=== PATIENT | male | born 1975 | race Caucasian/White ===

== ENCOUNTER 2021-09-11 19:25 | Emergency (ER) | payer BC ==
--- NOTE | 2021-09-11 22:00 | CR ---
INDICATION: Left shoulder pain. COMPARISON: None. TECHNIQUE: Left shoulder 2 view. FINDINGS: No acute fracture. Alignment is within normal limits. Mild AC joint osteophyte formation. IMPRESSION: Mild AC joint degenerative arthrosis. Otherwise no acute osseous abnormality. Dictated by Efrain Winkler MD @ 09/11/2021 10:00:15 PM (Electronically Signed)
[2021-09-11] MEDS ORDERED: traMADol 50 MG Tab PO ONE (22:07)
--- NOTE | 2021-09-11 22:07 | EDM.PDOC ---
ED HPI GENERAL MEDICAL PROBLEM - General Chief Complaint: Upper Extremity Injury/Pain Stated Complaint: SHOULDER PAIN Time Seen by Provider: 09/11/21 21:58 Source of Information: Reports: Patient History Limitations: Reports: No Limitations - History of Present Illness INITIAL COMMENTS - FREE TEXT/NARRATIVE: Patient is a 46-year-old male in today for left shoulder pain. 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 Patient states that yesterday he was moving a couch when the shoulder twisted again causing more pain. He has been having pain in the shoulder rating down to his fingertips. He still sensation there. Denies any other injuries or falls. Denies any chest pain fever chills nausea vomiting. Left Shoulder Pain Score (Numeric/FACES): 8 - Related Data Allergies Allergy/AdvReac Type Severity Reaction Status Date / Time acetaminophen Allergy Other Verified 09/11/21 20:23 diphenhydramine Allergy Other Verified 09/11/21 20:23 Penicillins Allergy Hives Verified 09/11/21 20:23 Home Meds: Home Meds . [No Known Home Meds] 09/11/21 [History] Past Medical History Gastrointestinal History: Reports: Cirrhosis Other Musculoskeletal History: 2 surgeries on right shoulder. Social & Family History - Tobacco Use Tobacco Use Status *Q: Never Tobacco User - Recreational Drug Use Recreational Drug Use: No Review of Systems - Review of Systems Review Of Systems: See Below Constitutional: Reports: No Symptoms Eyes: Reports: No Symptoms Ears: Reports: No Symptoms Nose: Reports: No Symptoms Mouth/Throat: Reports: No Symptoms Respiratory: Reports: No Symptoms Cardiovascular: Reports: No Symptoms GI/Abdominal: Reports: No Symptoms Genitourinary: Reports: No Symptoms Musculoskeletal: Reports: No Symptoms, Shoulder Pain, Hand Pain Skin: Reports: No Symptoms Neurological: Reports: No Symptoms Psychiatric: Reports: No Symptoms ED EXAM, GENERAL - Physical Exam Exam: See Below Exam Limited By: No Limitations General Appearance: Alert, WD/WN, No Apparent Distress Nose: Normal Inspection Head: Atraumatic Neck: Normal Inspection Respiratory/Chest: No Respiratory Distress Cardiovascular: Normal Peripheral Pulses Back Exam: Normal Inspection Extremities: Normal Inspection. No: Normal Range of Motion (Pain with range of motion of the left shoulder other extremities intact) Neurological: Alert, Oriented #1 Interpretation EKG Date: 09/12/21 Time: 00:22 Rhythm: Other (sinus jyoti) Rate (Beats/Min): 58 ST-T: Normal Course - Vital Signs Last Recorded V/S: Last Vital Signs Temp 97.9 F 09/11/21 20:24 Pulse 99 09/11/21 20:24 Resp 16 09/11/21 20:24 BP 113/63 09/11/21 20:24 Pulse Ox 94 L 09/11/21 20:24 - Orders/Labs/Meds Orders: Active Orders 24 hr Category Date Time Status Sodium Chloride 0.9% [Normal Saline] 1,000 ml Med 09/12/21 02:00 Active IV NOW Medication Orders Sodium Chloride (Normal Saline) 1,000 mls @ 999 mls/hr IV NOW STA Stop: 09/12/21 03:00 Labs: Laboratory Tests 09/12/21 09/12/21 09/12/21 Range/Units 00:18 00:25 00:25 WBC 11.30 H (4.0-11.0) K/uL RBC 5.29 (4.50-5.90) M/uL Hgb 15.1 (13.0-17.0) g/dL Hct 44.3 (38.0-50.0) % MCV 83.7 (80.0-98.0) fL MCH 28.5 (27.0-32.0) pg MCHC 34.1 (31.0-37.0) g/dL RDW Std Deviation 38.0 (28.0-62.0) fl RDW Coeff of Scott 13 (11.0-15.0) % Plt Count 277 (150-400) K/uL MPV 9.00 (7.40-12.00) fL Neut % (Auto) 70.5 (48.0-80.0) % Lymph % (Auto) 20.4 (16.0-40.0) % [place] % (Auto) 8.8 (0.0-15.0) % Eos % (Auto) 0.2 (0.0-7.0) % Baso % (Auto) 0.1 (0.0-1.5) % Neut # (Auto) 8.0 H (1.4-5.7) K/uL Lymph # (Auto) 2.3 (0.6-2.4) K/uL [place] # (Auto) 1.0 H (0.0-0.8) K/uL Eos # (Auto) 0.0 (0.0-0.7) K/uL Baso # (Auto) 0.0 (0.0-0.1) K/uL Sodium 141 (136-148) mmol/L Potassium 4.2 (3.5-5.1) mmol/L Chloride 104 (98-107) mmol/L Carbon Dioxide 27.7 (21.0-32.0) mmol/L BUN 14 (7.0-18.0) mg/dL Creatinine 0.9 (0.8-1.3) mg/dL Est Cr Clr Drug Dosing 105.90 mL/min Estimated GFR (MDRD) > 60.0 ml/min Glucose 150 H (74-106) mg/dL POC Glucose 152 H (70-99) mg/dL Calcium 8.1 L (8.5-10.1) mg/dL Total Bilirubin 0.3 (0.2-1.0) mg/dL AST 26 (15-37) IU/L ALT 72 H (14-63) IU/L Alkaline Phosphatase 63 (46-116) U/L Creatine Kinase 117 (26-308) U/L Troponin I < 0.050 (0.000-0.056) ng/mL Total Protein 7.7 (6.4-8.2) g/dL Albumin 3.6 (3.4-5.0) g/dL Globulin 4.1 H (2.6-4.0) g/dL Albumin/Globulin Ratio 0.9 (0.9-1.6) Meds: Medications Generic Name Dose Route Start Last Admin Trade Name Freq PRN Reason Stop Dose Admin Sodium Chloride 1,000 mls @ 999 mls/hr 09/12/21 02:00 Normal Saline IV 09/12/21 03:00 NOW STA Discontinued Medications Generic Name Dose Route Start Last Admin Trade Name Freq PRN Reason Stop Dose Admin Cyclobenzaprine HCl 5 mg 09/12/21 01:44 09/12/21 01:49 Cyclobenzaprine 5 Mg Tab PO 09/12/21 01:45 Not Given NOW STA Cyclobenzaprine HCl 10 mg 09/12/21 01:49 09/12/21 01:53 Cyclobenzaprine 10 Mg Tab PO 09/12/21 01:50 10 mg DAILY STA Administration Dexamethasone 10 mg 09/12/21 00:20 09/12/21 00:51 Dexamethasone 10 Mg/Ml Sdv IVPUSH 09/12/21 00:21 10 mg ONETIME ONE Administration Morphine Sulfate 4 mg 09/11/21 22:56 09/11/21 23:10 Morphine 4 Mg/Ml Vial IVPUSH 09/11/21 22:57 Not Given ONETIME ONE Morphine Sulfate 4 mg 09/11/21 23:05 09/11/21 23:05 Morphine 4 Mg/Ml Syringe IVPUSH 09/11/21 23:06 4 mg ONETIME ONE Administration Morphine Sulfate Confirm 09/11/21 23:02 09/11/21 23:09 Morphine 4 Mg/Ml Syringe Administered 09/11/21 23:03 Not Given Dose 4 mg .ROUTE .STK-MED ONE Tramadol HCl 50 mg 09/11/21 22:07 09/11/21 22:24 Tramadol 50 Mg Tab PO 09/11/21 22:08 50 mg ONETIME ONE Administration - Re-Assessments/Exams Free Text/Narrative Re-Assessment/Exam: 09/12/21 02:32 Patient pain improved after the muscle relaxer. Patient will refer to Ortho for follow-up. Departure - Departure Time of Disposition: 02:33 Disposition: Home, Self-Care 01 Condition: Good Clinical Impression: Shoulder pain - Discharge Information *PRESCRIPTION DRUG MONITORING PROGRAM REVIEWED*: Not Applicable *COPY OF PRESCRIPTION DRUG MONITORING REPORT IN PATIENT WHITNEY: Not Applicable Instructions: Shoulder Pain Referrals: PCP,None [Primary Care Provider] - Forms: ED Department Discharge Additional Instructions: The following information is given to patients seen in the emergency department who are being discharged to home. This information is to outline your options for follow-up care. We provide all patients seen in our emergency department with a follow-up referral. The need for follow-up, as well as the timing and circumstances, are variable depending upon the specifics of your emergency department visit. If you don't have a primary care physician on staff, we will provide you with a referral. We always advise you to contact your personal physician following an emergency department visit to inform them of the circumstance of the visit and for follow-up with them and/or the need for any referrals to a consulting s pecialist. The emergency department will also refer you to a specialist when appropriate. This referral assures that you have the opportunity for follow-up care with a specialist. All of these measure are taken in an effort to provide you with optimal care, which includes your follow-up. Under all circumstances we always encourage you to contact your private physician who remains a resource for coordinating your care. When calling for follow-up care, please make the office aware that this follow-up is from your recent emergency room visit. If for any reason you are refused follow-up, please contact the [facility] Emergency Department at and asked to speak to the emergency department charge nurse. Please follow up with your primary care physician. If you do not have a primary care physician, see below: [facility] Professional [address], [address] [place] [address] Orthopedic Surgery [place] [phone] [address] [address] You were seen today for shoulder pain that you have for a month now. We gave you some muscle relaxers to help out the pain. Above is our number to our orthopedic doctors that you can see if you continue to have pain. Please also follow-up with your primary care physician as well. Sepsis Event Note (ED) - Evaluation Sepsis Screening Result: No Definite Risk - Focused Exam Vital Signs: Vital Signs Temp Pulse Resp BP Pulse Ox 09/11/21 20:24 97.9 F 99 16 113/63 94 L - My Orders Last 24 Hours: My Active Orders 09/12/21 02:00 Sodium Chloride 0.9% [Normal Saline] 1,000 ml IV NOW - Assessment/Plan Last 24 Hours: My Active Orders 09/12/21 02:00 Sodium Chloride 0.9% [Normal Saline] 1,000 ml IV NOW Plan: Pt is a 46-year-old male presents today for left shoulder pain at the time of the callus. It shows been bothering for a month. Will obtain x-ray give pain control and reassess
[2021-09-11] MEDS ORDERED: Morphine 4 MG/ML VIAL IVPUSH ONE (22:56)
[2021-09-11] MEDS ORDERED: Morphine 4 MG/ML Syringe ONE (23:02)
[2021-09-11] MEDS ORDERED: Morphine 4 MG/ML Syringe IVPUSH ONE (23:05)
[2021-09-12] MEDS ORDERED: Dexamethasone 10 MG/ML SDV IVPUSH ONE (00:20)
[2021-09-12 01:12] LABS: BLOOD UREA NITROGEN,BUN 14 mg/dL (7.0-18.0); CARBON DIOXIDE,CO2 27.7 mmol/L (21.0-32.0); CHLORIDE,CL 104 mmol/L (98-107); GLUCOSE RANDOM 150 mg/dL (74-106); POTASSIUM,K 4.2 mmol/L (3.5-5.1); SODIUM,NA 141 mmol/L (136-148)
[2021-09-12] MEDS ORDERED: Cyclobenzaprine 5 MG Tab PO STA (01:44)
[2021-09-12] MEDS ORDERED: Cyclobenzaprine 10 MG Tab PO STA (01:49)
[2021-09-12] MEDS ORDERED: Sodium Chloride 0.9% 1,000 ML IV STA (02:00)
== END 2021-09-12 02:52 | disposition home or self-care (01) ==
LOC: MW.ED 19:25
DX: M25.512 Pain in left shoulder (principal); R00.1 Bradycardia, unspecified; Z88.6 Allergy status to analgesic agent; Z88.0 Allergy status to penicillin; Z88.8 Allergy status to other drugs, medicaments and biological substances
CPT/HCPCS: 36415; 73030; 80053; 82550; 82947; 84484; 85025; 93005; 96374; 96375; 99284; A9270; J1100; J2270; J7030

== ENCOUNTER 2022-11-27 19:41 | Emergency (ER) | payer BC ==
[2022-11-27] MEDS ORDERED: Ketorolac 30 MG/ML SDV IM STA (22:25)
[2022-11-27] MEDS ORDERED: predniSONE 20 MG Tab PO ONE (22:59)
[2022-11-27] MEDS ORDERED: Doxycycline 100 MG Cap PO ONE (23:00)
== END 2022-11-28 00:34 | disposition home or self-care (01) ==
LOC: MW.ED 19:41
DX: M71.22 Synovial cyst of popliteal space [Baker], left knee (principal); Z88.8 Allergy status to other drugs, medicaments and biological substances; Z88.5 Allergy status to narcotic agent; Z88.0 Allergy status to penicillin
CPT/HCPCS: 73562; 99283; A9270

== ENCOUNTER 2023-01-07 08:17 | Emergency (ER) | payer BC ==
[2023-01-07 09:11] LABS: CARBON DIOXIDE,CO2 26.9 mmol/L (21.0-32.0); POTASSIUM,K 3.6 mmol/L (3.5-5.1)
[2023-01-07 09:41] LABS: CORONAVIRUS COVID-19 NAA NEGATIVE (NEGATIVE); INFLUENZA A NAA NEGATIVE (NEGATIVE); INFLUENZA B NAA NEGATIVE (NEGATIVE)
== END 2023-01-07 11:00 | disposition home or self-care (01) ==
LOC: MW.ED 08:17
DX: L03.116 Cellulitis of left lower limb (principal); R53.81 Other malaise; R53.83 Other fatigue; M19.90 Unspecified osteoarthritis, unspecified site; Z86.16 Personal history of COVID-19; Z98.890 Other specified postprocedural states; Z88.8 Allergy status to other drugs, medicaments and biological substances; Z88.5 Allergy status to narcotic agent; Z88.0 Allergy status to penicillin; Z79.899 Other long term (current) drug therapy; Z20.822 Contact with and (suspected) exposure to COVID-19
CPT/HCPCS: 0240U; 36415; 71045; 80048; 85025; 93005; 99285; 93010; 99283

== ENCOUNTER 2025-11-06 10:21 | Emergency (ER) | payer BC, OTHER ==
[2025-11-06] MEDS: Diphtheria,Pertussis(Acell),Tetanus Vaccine 0.5 ML Syringe IM ONE (12:02)
== END 2025-11-06 12:39 | disposition home or self-care (01) ==
LOC: MW.ED 10:21
DX: M79.5 Residual foreign body in soft tissue (principal); Z88.0 Allergy status to penicillin; Z88.5 Allergy status to narcotic agent; Z88.6 Allergy status to analgesic agent; Z79.899 Other long term (current) drug therapy; Z23 Encounter for immunization
CPT/HCPCS: 73140; 90471; 90715; 99283; A9270